=== PATIENT | female | born 1980 | race Caucasian/White ===

== ENCOUNTER → 2016-09-23 | Outpatient (CLI) | payer OTHER ==
[2014-06-08 23:38] VITALS: BP 131/82
--- NOTE | 2016-09-23 15:39 | KCIC ---
PROCEDURE Right ankle and right foot radiographs. HISTORY Pain and swelling of the right ankle and foot after fall. COMPARISON None. FINDINGS AP, lateral, and oblique views of the right ankle. No acute fracture or dislocation is identified. No focal soft tissue swelling is seen. Small plantar calcaneal enthesophyte is present. AP, lateral, and oblique views of the right foot. No acute fracture or dislocation is identified. No significant degeneration is seen. No focal soft tissue swelling is identified. IMPRESSION No acute osseous abnormality identified in the right ankle or right foot. Electronically signed by: Zurdo Montez MD (Sep 23, 2016 15:38:38)
== END | disposition home or self-care (01) ==
LOC: KCIC 08:50
PROVIDERS: ATTEND Family Medicine
DX: M79.671 Pain in right foot (principal); M25.571 Pain in right ankle and joints of right foot
CPT/HCPCS: 73610; 73630

== ENCOUNTER → 2018-06-11 | Outpatient (CLI) | payer OTHER ==
[2014-06-08 23:38] VITALS: BP 131/82
[~2018-06-11] MED LIST: FEXO180T81 PO; GADOBUTROL 7.5 MMOL/7.5 ML VIAL IV ONE; MONT10TA9 PO
--- NOTE | 2018-06-11 14:30 | KCIC ---
MRI of the abdomen without and with intravenous contrast (liver protocol MRI): History: Liver mass, hemangioma. Comparison: CT abdomen pelvis August 26, 2009. Technique: MRI of the abdomen was performed using multiple sequences and planes both prior to and after intravenous gadolinium, 5 mL Gadavist. Sequences included a pre and post contrasted dynamic T1 weighted series. Findings: Right hepatic lobe, segment 7, demonstrates 3.7 cm hemangioma which demonstrates increased T2 signal and decreased in T1 signal; this demonstrates peripheral nodular enhancement, most evident on the final phase of enhancement. The periphery of the right hepatic lobe, segment 8, demonstrates 3 mm T2 hyperintense, nonenhancing cyst. Within the left hepatic lobe, segment 2, there is a 4 mm T2 hyperintense lesion. This appears to have decreased T1 signal, and on a majority of the dynamic T1 series appears to be decreased in signal, although on the final phase, lesion appears increased in signal. This is favored represent benign entity such as a subcentimeter hemangioma. Spleen and pancreas are unremarkable. Bilateral kidneys enhance symmetrically. The superior pole of the left kidney demonstrates small nonenhancing cyst measuring 4 mm. Anterior inferior pole of the right kidney demonstrates nonenhancing 3 mm cyst. No renal obstruction is seen. The gallbladder demonstrates slight differential in signal intensity, suggesting presence of sludge. No cholecystitis is identified. Common bile duct has normal caliber at 3 mm. Pancreatic duct has normal caliber 1-2 mm. There is no evidence of pancreas divisum. Pancreas is without evidence of inflammation. Impression: 1. Right hepatic lobe, segment 7, demonstrates 3.7 cm hemangioma. 2. Right hepatic lobe, segment 8, demonstrates subcentimeter nonenhancing cyst. 3. Left hepatic lobe, segment 2, demonstrates subcentimeter lesion, likely benign etiology, could be hemangioma. 4. Suspect gallbladder sludge. 5. Small bilateral renal cysts. Electronically signed by: Zurdo Montez MD (06/11/2018 2:27 PM) [place] [id number]
== END | disposition home or self-care (01) ==
LOC: KCIC MRI 09:54
PROVIDERS: ATTEND Internal Medicine Gastroenterology
DX: N28.1 Cyst of kidney, acquired (principal); K76.89 Other specified diseases of liver; D18.03 Hemangioma of intra-abdominal structures; J45.909 Unspecified asthma, uncomplicated
CPT/HCPCS: 74183; A9585